=== PATIENT | female | born 1985 | race Caucasian/White ===

== ENCOUNTER 2019-07-08 10:43 | Emergency (ER) | payer OTHER ==
[~2019-07-08] VITALS: Ht 160 cm; Wt 60.0 kg
[2019-07-08 11:05] VITALS: BP 143/84
== END 2019-07-08 11:38 | disposition home or self-care (01) ==
LOC: ER 10:44
DX: S90.111A Contusion of right great toe without damage to nail, initial encounter (principal); W20.8XXA Other cause of strike by thrown, projected or falling object, initial encounter; Y93.89 Activity, other specified; Y92.69 Other specified industrial and construction area as the place of occurrence of the external cause; Y99.9 Unspecified external cause status
CPT/HCPCS: 73610; 73630; 99284

== ENCOUNTER 2023-09-29 08:00 | Outpatient (CLI) | payer OTHER | END 2023-09-29 23:59 | disposition home or self-care (01) | LOC: RAD 08:00 | PROVIDERS: ATTEND Obstetrics & Gynecology | DX: Z32.01 Encounter for pregnancy test, result positive (principal) | CPT/HCPCS: 76801 ==

== ENCOUNTER 2023-09-29 09:14 | Emergency (ER) | payer OTHER ==
[~2023-09-29] VITALS: Ht 170.2 cm; Wt 58.0 kg
[2023-09-29 09:21] VITALS: BP 128/77; PULSE 61; RESP 18; TEMP 98.6; O2SAT 100
== END 2023-09-29 13:46 | disposition home or self-care (01) ==
LOC: ER 09:16
DX: O20.0 Threatened abortion (principal); Z3A.01 Less than 8 weeks gestation of pregnancy
CPT/HCPCS: 36415; 76801; 84702; 99284